=== PATIENT | male | born 1945 | race Caucasian/White ===

== ENCOUNTER 2019-05-25 11:41 | Emergency (ER) | payer MEDICARE, OTHER ==
[~2019-05-25] VITALS: Ht 180.3 cm; Wt 95.0 kg
[~2019-05-25 11:41] MED LIST: LISINOPRIL20 M1 PO
[2019-05-25 13:54] LABS: URINE BILIRUBIN - DIPSTICK NEGATIVE (NEGATIVE); URINE BLOOD DIPSTICK NEGATIVE (NEGATIVE); URINE COLOR YELLOW; URINE GLUCOSE - DIPSTICK NEGATIVE (NEGATIVE); URINE KETONE NEGATIVE (NEGATIVE); URINE LEUK ESTERASE NEGATIVE (NEGATIVE); URINE NITRITE - DIPSTICK NEGATIVE (Negative); URINE PH 5.5 (4.5-8.0); URINE PROTEIN - DIPSTICK NEGATIVE (NEG-TRACE); URINE SPECIFIC GRAVITY <=1.005; URINE UROBILINOGEN - DIPSTICK 0.2 E.U./dL (0.2)
[2019-05-25] MEDS ORDERED: Levaquin PO (14:34)
[2019-05-25] MEDS ORDERED: TEMAZEPAM30 MG PO (14:55)
[2019-05-25] MEDS ORDERED: CHLORTHALID25 MG PO (14:55)
[2019-05-25 14:59] VITALS: BP 94/52
== END 2019-05-25 14:59 | disposition home or self-care (01) ==
LOC: ED 11:41
PROVIDERS: Family Medicine
DX: N45.2 Orchitis (principal); I86.1 Scrotal varices; N43.3 Hydrocele, unspecified; I10 Essential (primary) hypertension